=== PATIENT | female | born 1960 | race Caucasian/White ===

== ENCOUNTER 2022-04-12 19:35 | Emergency (ER) | payer BC ==
[~2022-04-12] VITALS: Ht 175.3 cm; Wt 90.7 kg
[2022-04-12 19:40] VITALS: BP_SYST 139
--- NOTE | 2022-04-12 19:50 | NUR ---
Patient triaged and placed in waiting room. VSS and patient appears in no acute distress at this time. Accompanied by partner, awaiting available bed, and MD notified of need for MSE.
--- NOTE | 2022-04-12 19:50 | NUR ---
PT FROM HOME WITH C/O OF UPPER ABD PAIN, LEFT SHOULDER PAIN, BODY ACHES X A COUPLE OF DAYS. PT DENIES N/V, CP AND DIARRHEA. VSS. REQUESTED FOR MSE.
--- NOTE | 2022-04-12 20:08 | NUR ---
DR. SANZ WITH PATIENT IN TRIAGE FOR MSE.
[2022-04-12] MEDS ORDERED: IBUPROFEN 600 MG TABLET PO ONE (20:30)
[2022-04-12] MEDS ORDERED: MAG-AL HYDROX/SIMETH 30 ML UDC PO ONE (21:00)
[2022-04-12 21:02] LABS: BASOPHILS % (AUTO) 0.3 % (0.0-2.0); EOSINOPHILS # (AUTO) 0.1 K/uL (0.0-0.4); EOSINOPHILS % (AUTO) 1.3 % (0.0-4.0); HEMATOCRIT 44.1 % (36-48); HEMOGLOBIN 15.1 g/dL (12.0-16.0); LYMPHOCYTES # (AUTO) 1.9 K/uL (1.0-5.5); LYMPHOCYTES % (AUTO) 24.9 % (20.5-51.5); MEAN CORPUSCULAR HEMOGLOBIN 34 pg (27-31); MEAN CORPUSCULAR HGB CONC 34 % (32-36); MEAN CORPUSCULAR VOLUME 99 fL (79.0-98.0); MONOCYTES # (AUTO) 0.4 K/uL (0.0-1.0); MONOCYTES % (AUTO) 5.4 % (1.7-9.3); NEUTROPHILS # (AUTO) 5.3 K/uL (1.8-7.7); NEUTROPHILS % (AUTO) 68.1 % (40.0-70.0); PLATELET COUNT (AUTO) 228 K/uL (130-430); RED BLOOD CELL COUNT(AUTO) 4.47 MIL/uL (4.2-6.2); RED CELL DISTRIBUTION WIDTH 14.7 % (9.0-15.0); WHITE BLOOD COUNT (AUTO) 7.8 K/uL (4.8-10.8)
[2022-04-12 21:07] LABS: ANION GAP 10 (5-15); CALCIUM 8.8 mg/dL (8.4-11.0); CHLORIDE 103 mmol/L (98-107); CREATININE 0.63 mg/dL (0.55-1.30); GLUCOSE 92 mg/dL (70-99); UREA NITROGEN, BLOOD 7 mg/dL (8-21)
[2022-04-12 21:08] LABS: GFR AFRICAN AMERICAN 123 mL/min (>90)
[2022-04-12 21:22] LABS: BILIRUBIN,URINE NEGATIVE (NEGATIVE); BLOOD, URINE NEGATIVE (NEGATIVE); COLOR,URINE YELLOW (YELLOW); GLUCOSE,URINE NEGATIVE (NEGATIVE); KETONES,URINE 1+ (NEGATIVE); LEUKOCYTE ESTERASE ,URINE 1+ (NEGATIVE); NITRITE, URINE NEGATIVE (NEGATIVE); PROTEIN URINE NEGATIVE (NEGATIVE); UROBILINOGEN,URINE 0.2 (0.2-1.0)
[2022-04-12 21:25] LABS: CLARITY/URINE SLIGHTLY HAZY (CLEAR)
[2022-04-12 21:27] LABS: ALANINE AMINOTRANSFERASE 25 U/L (12-78); ALBUMIN 3.7 g/dL (3.4-4.8); ASPARTATE AMINOTRANSFERASE 17 U/L (10-37); LIPASE 103 U/L (73-393); TOTAL BILIRUBIN 0.6 mg/dL (0.0-1.0)
[2022-04-12] MEDS ORDERED: MAG-AL HYDROX/SIMETH 30 ML UDC ONE (21:46)
[2022-04-12 21:53] LABS: BACTERIA,URINE FEW /HPF (None Seen); RBC,URINE NONE SEEN /HPF (0-3)
[2022-04-12 22:31] VITALS: BP_SYST 139
--- NOTE | 2022-04-12 22:31 | NUR ---
Patient given written and verbal discharge instructions and verbalizes understanding. ER DR. VELEZ discussed with patient the results and treatment provided. Patient in stable condition. ID arm band removed. Patient educated on pain management and to follow up with PMD. Pain Scale 0. Opportunity for questions provided and answered. Medication side effect fact sheet provided.
== END 2022-04-12 22:31 | disposition home or self-care (01) ==
LOC: SED 19:35
DX: R10.13 Epigastric pain (principal); R06.02 Shortness of breath; M25.512 Pain in left shoulder; Z79.899 Other long term (current) drug therapy
CPT/HCPCS: 36415; 71045; 80053; 81000; 83690; 84484; 85025; 85379; 93005; 99285